=== PATIENT | female | born 1975 | race Caucasian/White ===

== ENCOUNTER → 2018-03-31 20:31 | Outpatient (CLI) | payer OTHER, SELFPAY ==
--- NOTE | 2018-03-31 20:36 | DI.MRI.S_ITS ---
PROCEDURE: MR KNEE LT WO CON INDICATIONS: TEAR IN LEFT KNEE TECHNIQUE: Noncontrast sagittal PD fast spin echo and T2 fast spin echo with fat saturation, sagittal 3-D FLASH with fat saturation; coronal T1 spin echo and PD fast spin echo with fat saturation, and axial PD fast spin echo with fat saturation through the knee. COMPARISON: None. FINDINGS: Image quality: Excellent. Menisci: There is a large bucket-handle tear of the lateral meniscus. The medial meniscus demonstrates normal morphology and internal signal. The meniscal root ligaments appear intact. Cruciate ligaments: The anterior cruciate ligament is torn and retracted The posterior cruciate ligament appears intact. Medial structures: The medial collateral ligament appears intact. The posterior oblique ligament, semimembranosus tendon insertions, oblique popliteal ligament, and meniscocapsular junction appear intact. Visualized portions of the pes anserinus tendons appear normal. No abnormal bursal fluid. Lateral structures: The lateral collateral ligament, long and short heads of the biceps femoris tendon appear intact. The popliteus tendon appears normal; the popliteofibular ligament appears intact. The posterosuperior and anteroinferior popliteomeniscal fascicles appear intact. The arcuate and fabellofibular ligaments appear intact, on either side of the lateral inferior geniculate artery. Iliotibial band appears normal. Anterior structures: The quadriceps and patellar tendons appear intact. Patellar alignment is normal. No femoral trochlear dysplasia or ventral trochlear prominence. No edema in the infrapatellar fat pad. Bones and cartilage: No bone marrow contusions or fractures. The cartilage of the medial and lateral femorotibial compartments, as well as the patellofemoral compartment, appears normal in thickness. Joint space: There is a moderate-sized joint effusion. No Luther's cyst. Normal appearing synovial plicae are incidentally noted. IMPRESSION: 1. Anterior cruciate ligament tear. 2. Large bucket-handle tear of the lateral meniscus. 3. Joint effusion. Dictated by: Serena Rios MD, PhD on 04/01/2018 at 22:58 Approved by: Serena Rios MD, PhD on 04/01/2018 at 23:09
== END ==
PROVIDERS: Visit Provider Physician Assistant
DX: S83.282A Other tear of lateral meniscus, current injury, left knee, initial encounter (principal); S83.512A Sprain of anterior cruciate ligament of left knee, initial encounter; M25.462 Effusion, left knee
CPT/HCPCS: 73721

== ENCOUNTER → 2020-01-29 13:38 | Outpatient (CLI) | payer OTHER, SELFPAY ==
--- NOTE | 2020-01-29 | DI.MRI.S_ITS ---
PROCEDURE: MR SHOULDER RT W CON INDICATIONS: Unspecified injury of muscle(s) and tendon(s) of t TECHNIQUE: After the administration of 12 mL of dilute intra-articular Gadolinium contrast, oblique coronal T1 and T2 spin echo with fat saturation, oblique sagittal T1 spin echo with and without fat saturation, oblique sagittal T2 fast spin echo with fat saturation, axial T1 spin echo with fat saturation through the shoulder. COMPARISON: None. FINDINGS: Image quality: Excellent. Rotator cuff: There is tendinosis and low-grade articular and bursal surface partial-thickness tear involving distal supraspinatus at its insertion on humeral head. Distal infraspinatus tendon is intact. Distal subscapularis tendon is intact. No full-thickness rotator cuff tendon rupture. No rotator cuff muscle atrophy on sagittal images. Bones and bursae: No bone marrow contusions or fractures. Mild to moderate acromioclavicular joint osteoarthritic changes are noted.. Capsule and soft tissues: There is suggestion of superior anterior labral tear at 1 to 2 o'clock position. The glenohumeral ligaments appear intact. The long head of the biceps tendinosis and low-grade intrasubstance partial-thickness tear is seen . The rotator interval appears normal, without fibrosis. The coracohumeral ligament is of normal thickness. No intra-articular bodies. IMPRESSION: 1. Tendinosis and low-grade articular and bursal surface partial thickness tear involving distal supraspinatus at its insertion on the humeral head extending to musculotendinous junction. No full-thickness rotator cuff tendon rupture. 2. Mild to moderate acromioclavicular joint osteoarthritis. 3. Suggestion of focal superior anterior labral tear at 1 to 2 o'clock position. 4. Proximal intra-articular portion of long head of biceps tendinosis and low-grade intrasubstance partial-thickness tear. Dictated by: Gordy Calles M.D. on 01/29/2020 at 14:45 Approved by: Gordy Calles M.D. on 01/29/2020 at 15:09
--- NOTE | 2020-01-29 | DI.RAD.S_ITS ---
PROCEDURE: FL SHOULDER INJECTION MR/CT RT INDICATIONS: Unspecified injury of muscle(s) and tendon(s) TECHNIQUE: The indications, alternatives, benefits, risks, and complications of the procedure were explained to the patient. Written informed consent was obtained and placed in the chart. The shoulder was examined fluoroscopically and a site for needle placement chosen for entry into the glenohumeral joint from an anterior approach. The skin was prepped and draped in a sterile fashion, and 1% lidocaine infiltrated from skin down to joint capsule. A spinal needle was inserted into the glenohumeral joint, and a small amount of iodinated contrast media injected to confirm intra-articular placement of the needle tip. This was followed by approximately 12 mL dilute solution of a gadolinium containing MR contrast agent. The needle was removed and a dressing was applied. The patient was given postprocedural instructions and sent to the MR suite for MR imaging. FINDINGS: A single fluoroscopic spot image demonstrates intra-articular location of injected iodinated contrast. IMPRESSION: Successful fluoroscopically guided administration of dilute Gadolinium solution into the shoulder joint for MR arthrogram. No immediate complications. Dictated by: Serena Rios MD, PhD on 01/29/2020 at 16:39 Approved by: Serena Rios MD, PhD on 01/29/2020 at 16:40
== END ==
PROVIDERS: PCP Nurse Practitioner Family; Referring Provider Nurse Practitioner Family; Visit Provider Nurse Practitioner Family
DX: S46.011A Strain of muscle(s) and tendon(s) of the rotator cuff of right shoulder, initial encounter (principal); S46.111A Strain of muscle, fascia and tendon of long head of biceps, right arm, initial encounter; M19.011 Primary osteoarthritis, right shoulder; X58.XXXA Exposure to other specified factors, initial encounter
CPT/HCPCS: 23350; 73222; 77002

== ENCOUNTER → 2024-09-20 18:46 | Outpatient (CLI) | payer OTHER, SELFPAY ==
--- NOTE | 2024-09-20 | DI.MRI.S_ITS ---
PROCEDURE: MR KNEE LT WO CON INDICATIONS: knee instability,pain left knee TECHNIQUE: Noncontrast sagittal PD fast spin echo and T2 fast spin echo with fat saturation, sagittal 3-D FLASH with fat saturation; coronal T1 spin echo and PD fast spin echo with fat saturation, and axial PD fast spin echo with fat saturation through the knee. COMPARISON: None. FINDINGS: Image quality: Excellent. Menisci: The medial meniscus is intact. Horizontal oblique tear involving body and posterior horn of lateral meniscus extending to inferior articulating surface. Cruciate ligaments: Patient is status post prior ACL reconstruction. ACL graft is grossly intact. The PCL is intact. Medial structures: The medial collateral ligament appears mildly thickened with adjacent soft tissue edema. Visualized portions of the pes anserinus tendons appear normal. No abnormal bursal fluid. Lateral structures: The lateral collateral ligament, long and short heads of the biceps femoris tendon appear intact. The popliteus tendon appears normal. Iliotibial band appears normal. Anterior structures: Distal quadriceps tendinosis at its superior patellar insertion is seen. The patellar tendon is intact. Patellar alignment is normal. Bones and cartilage: There is no abnormal anterior tibial translation. No signal abnormality is seen in tibial tunnel or femoral tunnel. No gross marrow edema. No acute fracture or dislocation. Mild tricompartmental osteoarthritis and chondromalacia is seen more notably in lateral femoral tibial compartment. Joint space: There is small knee joint fluid. No Luther's cyst. Normal appearing synovial plicae are incidentally noted. IMPRESSION: 1. Postsurgical changes from prior ACL reconstruction. Anatomic left knee alignment. No abnormal anterior tibial translation. No signal abnormality is seen within femoral tunnel or tibial tunnel. No marrow edema. No fracture or dislocation. 2. 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 Small joint effusion, no loose bodies. 3. Horizontal oblique tear involving body and posterior horn of lateral meniscus extending to inferior articulating surface. No evidence of lateral meniscal tear. 4. ACL graft is intact. The PCL is intact. 5. Low to moderate grade MCL sprain. Distal quadriceps tendinosis. Dictated by: Gordy Calles M.D. on 09/21/2024 at 11:10 Approved by: Gordy Calles M.D. on 09/21/2024 at 11:18
== END ==
PROVIDERS: PCP Nurse Practitioner Family; Referring Provider Student in an Organized Health Care Education/Training Program; Visit Provider Student in an Organized Health Care Education/Training Program
DX: S83.282A Other tear of lateral meniscus, current injury, left knee, initial encounter (principal); S83.412A Sprain of medial collateral ligament of left knee, initial encounter; M25.362 Other instability, left knee; M25.562 Pain in left knee; M17.12 Unilateral primary osteoarthritis, left knee; M94.262 Chondromalacia, left knee; M25.462 Effusion, left knee; Z98.890 Other specified postprocedural states
CPT/HCPCS: 73721

== ENCOUNTER → 2025-05-14 10:28 | Outpatient (CLI) | payer OTHER, SELFPAY ==
--- NOTE | 2025-05-14 10:29 | DI.MG.S_ITS ---
MM diagnostic mammo BI, US breast BI limited: 05/14/2025 BI-RADS: 2 CLINICAL: 49-year old female for bilateral diagnostic mammogram and bilateral diagnostic breast ultrasound. The patient presents for additional evaluation of an inconclusive screening mammogram. Tyrer-Cuzick lifetime risk of 20.1%. Current reported family history of breast cancer: mother. The patient had a prior left breast biopsy. PRIOR EXAMS 03/20/2025, 06/06/2024, 05/08/2024, 12/24/2021, 10/27/2021. MAMMOGRAPHY TECHNIQUE: 2D and 3D (tomosynthesis) digital mammographic views obtained, with additional images as needed for full coverage. Current study was also evaluated with a Computer Aided Detection (CAD) system. ULTRASOUND TECHNIQUE: Real-time gann scale and color doppler imaging of the area of clinical interest was performed with image documentation. TARGETED Bilateral Breast Ultrasound: Real-time ultrasound exam was performed focused to area of clinical and/or imaging concern. DENSITY C. The breasts are heterogeneously dense, which may obscure small masses. MAMMOGRAPHY FINDINGS Right (finding-1): Upper Outer Quadrant, Posterior depth: Correlating with prior imaging concern, there is a focal asymmetry present with associated calcifications. The focal asymmetry appears less conspicuous compared to the prior study, and there are few punctate calcifications. Left (finding-2): Upper Inner Quadrant, Posterior depth, measuring 0.7cm: Correlating with findings on screening mammogram there is a microlobulated, equal-density mass present. ULTRASOUND FINDINGS Right (finding-1): Upper Outer at 10:30, 7 cm from nipple, measuring 0.6 x 0.3 x 0.6 cm: Correlating with findings on mammogram and prior imaging concern, there are clustered microcysts that have decreased in size. Doppler shows no vascularity. Left (finding-2): Upper Inner at 10:00, 5 cm from nipple, measuring 0.8 x 0.4 x 0.8 cm: Correlating with findings on mammogram, there are clustered microcysts. Doppler shows no vascularity. IMPRESSION: * No evidence of malignancy with benign findings. RECOMMENDATIONS Bilateral * Annual screening mammography. COMMENTS: Findings and recommendations were conveyed to the patient during today's evaluation. According to the Tyrer-Cuzick Risk Assessment Model, based on the information provided your patient has a greater than 20% lifetime risk for developing breast cancer. Consider supplemental screening with breast MRI and participation in a high-risk screening program. OVERALL ASSESSMENT CATEGORY BI-RADS-2: Benign. The [employer] recommends annual screening mammography beginning at age 40 for women with average risk of breast cancer. ELECTRONICALLY SIGNED: Layne Godfrey M.D. on 05/14/2025 at 01:12:40 PM PT Interpreting Station ID: [id number]
== END ==
LOC: MAMMO 10:29
PROVIDERS: PCP Student in an Organized Health Care Education/Training Program; Referring Provider Student in an Organized Health Care Education/Training Program; Visit Provider Student in an Organized Health Care Education/Training Program
DX: R92.8 Other abnormal and inconclusive findings on diagnostic imaging of breast (principal); R92.333 Mammographic heterogeneous density, bilateral breasts; R92.1 Mammographic calcification found on diagnostic imaging of breast; Z80.3 Family history of malignant neoplasm of breast
CPT/HCPCS: 76642; 77066; G0279